=== PATIENT | female | born 1985 | race Caucasian/White ===

== ENCOUNTER 2023-06-07 11:31 | Emergency (ER) | payer BC ==
[~2023-06-07] VITALS: Ht 167.6 cm; Wt 54.9 kg
[~2023-06-07 11:31] MED LIST: BIRTH CONTROL; DEXT5TAB26 PO
[2023-06-07 11:45] VITALS: BP 114/84; PULSE 92; TEMP 97.8; O2SAT 98
[2023-06-07] MEDS ORDERED: NAPR-56 PO (13:17)
[2023-06-07] MEDS ORDERED: CYCL-1 PO (13:17)
[2023-06-07] MEDS ORDERED: ketorolac trometh inj. 60 MG/2 ML VIAL IM ONE (13:20)
[2023-06-07] MEDS ORDERED: diazepam inj 5 MG/ML inj. IM ONE (13:20)
[2023-06-07 13:31] VITALS: RESP 19
== END 2023-06-07 14:02 | disposition home or self-care (01) ==
LOC: ER 11:33
DX: S39.012A Strain of muscle, fascia and tendon of lower back, initial encounter (principal); Z88.1 Allergy status to other antibiotic agents; Z79.899 Other long term (current) drug therapy; X50.1XXA Overexertion from prolonged static or awkward postures, initial encounter; Y93.89 Activity, other specified; Y92.89 Other specified places as the place of occurrence of the external cause; Y99.8 Other external cause status
CPT/HCPCS: 96372; 99284; J1885; J3360